=== PATIENT | female | born 1970 | race Asian ===

== ENCOUNTER → 2017-07-22 | Outpatient (CLI) | payer OTHER ==
[2017-07-23 13:49] LABS: Source UN
== END | disposition home or self-care (01) ==
LOC: LAB 14:36
PROVIDERS: Nurse Practitioner Family
DX: Z12.4 Encounter for screening for malignant neoplasm of cervix (principal)
CPT/HCPCS: G0123

== ENCOUNTER 2021-05-08 14:17 | Day surgery (SDC) | payer OTHER ==
[~2021-05-08] VITALS: Ht 160 cm; Wt 68.0 kg
[2021-05-08 14:59] LABS: BASOPHILS ABSOLUTE AUTO 0.02 K/mm3 (0.00-0.23); BASOPHILS PERCENT AUTO 0 % (0-2); EOSINOPHILS PERCENT AUTO 0 % (0-6); Hematocrit 40.2 % (33.0-51.0); Hemoglobin 13.4 g/dL (11.5-16.0); IMMATURE GRAN ABSOLUTE AUTO 0.03 K/mm3 (0.00-0.10); IMMATURE GRAN PERCENT AUTO 0 % (0-1); LYMPHOCYTES ABSOLUTE AUTO 0.64 K/mm3 (0.84-5.20); LYMPHOCYTES PERCENT AUTO 5 % (21-46); MONOCYTES ABSOLUTE AUTO 0.27 K/mm3 (0.16-1.47); MONOCYTES PERCENT AUTO 2 % (4-13); Mean Corpuscular HGB Conc 33.3 g/dL (31.5-36.5); Mean Corpuscular Volume 90 fL (80-100); Mean Platelet Volume 11.1 fL (9.1-12.4); NEUTROPHILS ABSOLUTE AUTO 12.55 K/mm3 (1.96-9.15); NEUTROPHILS PERCENT AUTO 93 % (41-73); Platelet Count 269 K/mm3 (150-400); RDW Coefficient Variation 12.6 % (11.7-14.2); RDW Standard Deviation 41.6 fL (35.1-46.3); Red Blood Cell Count 4.46 M/mm3 (3.80-5.20); White Blood Cell Count 13.51 K/mm3 (4.00-11.30)
[2021-05-08 15:35] LABS: Alanine Aminotransfer (ALT/SGP 18 U/L (12-78); Albumin, Blood 3.9 g/dL (3.4-5.0); Alk Phos 54 U/L (50-136); Anion Gap 8 mmol/L (6-16); Aspartate Aminotrans (AST/SGOT 18 U/L (12-37); Bilirubin, Total 1.4 mg/dL (0.1-1.0); Blood Urea Nitrogen 13 mg/dL (8-24); Bun/Creatinine Ratio 25.4 (12.0-20.0); CO2, Blood 24 mmol/L (21-32); Chloride, Blood 105 mmol/L (98-108); Creatinine, Blood 0.51 mg/dL (0.40-1.00); Globulin, Blood 4.1 g/dL (2.2-4.0); Glomerular Filtration Rate >60 (60-); Glucose, Blood 123 mg/dL (70-99); Potassium, Blood 3.7 mmol/L (3.5-5.5); Sodium, Blood 137 mmol/L (136-145)
[2021-05-08 15:50] LABS: SARS-Cov-2 (COVID-19) PCR, MMC NEGATIVE (NEGATIVE)
--- NOTE | 2021-05-08 19:12 | NUR ---
ARRIVAL TO UNIT PT ARRIVED TO UNIT FROM PACU [id number], LAP SITES CDI WITH DERMABOND. PT REPORTS PAIN OF 5/10 BUT STATES TOLERABLE FOR HER. SHE DENIES NAUSEA OF ANY KIND. EDUCATED PT ON IMPORTANCE OF DEEP BREATHING AND BEING ABLE TO AMBULATE POST OP. EDUCATED PT ON NEEDING TO TOLERATE ORAL INTAKE AND BE ABLE TO AMBULATE PRIOR TO DISCHARGING. IN ROOM WITH PATIENT AT THIS TIME. REPORT GIVEN TO ONCOMING RN.
[2021-05-08] MEDS ORDERED: HYDR1TAB94 PO (20:11)
--- NOTE | 2021-05-08 21:20 | NUR ---
POST OP PT IN ROOM AT 1900. AAOX4. LAP ABD INCISIONS X3 C/D/I. INDEPENDENT IN ROOM. TOLERATING PO INTAKE + JELLO/CRACKERS. PT VOIDED IN TOILET X2. VS NOTED. AT BEDSIDE. PT REPORTING DISCOMFORT AT TOLERABLE LEVEL POST 0.5 TABLET NORCO, REQUESTING TO BE DISCHARGED. DISCHARGE INSTRUCTIONS GIVEN AT 2029 + QUESTIONS ANSWERED. IV DC'D WNL. PT CHANGED INTO CLOTHES + OUT IN HALLS AMBULATING TO CAR INDEPENDENTLY, WITH BELONGINGS AT 2100.
== END 2021-05-08 21:00 | disposition home or self-care (01) ==
LOC: ER 14:17 → SURS 16:39 → ER 16:43 → ORSCMMR 18:35 → SURS 18:44 → ORSCMMR 21:00 → SURS 21:00
PROVIDERS: Physician Assistant; Surgery
PROC: 0DTJ4ZZ Resection of Appendix, Percutaneous Endoscopic Approach (ICD-10-PCS; principal; 2021-05-08 18:30)
DX: K35.80 Unspecified acute appendicitis (principal); E03.9 Hypothyroidism, unspecified; F17.210 Nicotine dependence, cigarettes, uncomplicated; K21.9 Gastro-esophageal reflux disease without esophagitis; Z79.899 Other long term (current) drug therapy
CPT/HCPCS: 36415; 80053; 85025; 88305; 96374-59; 99284-25; A9270; J1100; J2250; J2405; J2543; J2704; J3010; J7030; U0004